=== PATIENT | female | born 1975 | race African-American/Black ===

== ENCOUNTER 2017-04-23 22:55 | Emergency (ER) | payer BC ==
[2017-04-23] MEDS ORDERED: BENADRYL INJ 50 MG VIAL IM ONE (23:07)
[2017-04-23] MEDS ORDERED: SOLU-Medrol 125 MG VIAL IVP ONE (23:07)
[2017-04-23 23:08] VITALS: BP 187/91; BMI 42.5
[2017-04-23] MEDS ORDERED: SOLU-Medrol 125 MG VIAL ONE (23:09)
[2017-04-23] MEDS ORDERED: BENADRYL INJ 50 MG VIAL ONE (23:09)
--- NOTE | 2017-04-23 23:09 | DR.GENAD ---
HPI - PCP Primary Care Physician: MOHAN - Complaint/Symptoms Chief Complaint Doctors Comments: Patient states that they went to eat at [employer], ate some garlic knots and went to [employer] and ate some salted peanuts. Later on about 2200 started feeling lip swell and cough. Chief Complaint:: PT HAS EDEMA TOO EYELIDS AND LIP ITCHING ALLOVER UNKNOWN ALLERGY - Source History Provided: Patient - Mode of Arrival Mode of Arrival: Ambulatory - Timing Onset of Chief Complaint: 04/23/17 PMH - PMH Past Medical History: Yes Past Medical History: Hypertension Past Surgical History: Yes Surgical History: , [employer] Surgery - Family History History of Family Medical Conditions: No - Social History Does patient currently use any type of tobacco product: No Have you used tobacco products in the last 12 months: No Type of Tobacco Use: None Does any household member use tobacco: No Alcohol Use: None Do you use any recreational Drugs:: No Lives With: Family Lives Where: Home - infectious screening In the last 2 months have you had wt loss of >10#?: NO Have you had fever, night sweats or hemotysis?: No Have you traveled outside the country in the last 6 months?: No Isolation: Standard ROS - Review of Systems Eyes: No Symptoms Reported ENTM: No Symptoms Reported Respiratoy: No Symptoms Reported Cardiovascular: No Symptoms Reported Gastrointestinal/Abdominal: No Symptoms Reported Genitourinary: No Symptoms Reported Neurological: No Symptoms Reported Musculoskeletal: No Symptoms Reported Integumentary: No Symptoms Reported Hematologic/Lymphatic: No Symptoms Reported Endocrine: No Symptoms Reported Psychiatric: No Symptoms Reported All Other Systems: Reviewed and Negative PE - Vital Signs Vitals: Temperature 98.6 F Pulse Rate 124 Respiratory Rate 18 Blood Pressure 187/91 O2 Sat by Pulse Oximetry 97 - General General Appearance: Alert, In No Apparent Distress - Head Head Exam: Normal Inspection, Atraumatic - Eyes Eye exam: Normal Appearance, PERRL, EOMI - ENT ENT Exam: Normal Exam, Other (tongue non edematous) External Ear Exam: Normal External Inspection TM/Canal Exam: Bilateral Normal Nose Exam: Normal Nose Exam Mouth Exam: Lip Swelling (left lower lip edematous). negative: Drooling, Trismus, Tongue Swelling Throat Exam: Normal Inspection - Neck Neck Exam: Normal Inspection - Chest Chest Inspection: Normal Inspection - Respiratory Respiratory Exam: Normal Lung Sounds Bilat Respiratory Exam: Bilateral Clear to Auscultation - Cardiovascular Cardiovascular Exam: Regular Rate, Normal Rhythm - Abdominal Exam Abdominal Exam: Normal Inspection Abdominal Tenderness: negative: RUQ, RLQ, LUQ, LLQ, Epigastrium, Suprapubic, Diffuse, Mild, Moderate, Severe, Other - Extremities Extremities Exam: Normal Inspection - Back Back Exam: Normal Inspection, Full ROM - Neurologic Neurological Exam: Alert, Oriented X3, CN II-XII Intact - Psychiatric Psychiatric Exam: Normal Affect, Normal Mood - Skin Skin Exam: Warm, Dry, Intact Course - Reevaluation 1st: Improved - Diagnosis Discharge Problem: Allergic reaction Qualifiers: Encounter type: initial encounter Qualified Code(s): T78.40XA - Allergy, unspecified, initial encounter - Discharge Plan Condition: Stable - Follow ups/Referrals Follow ups/Referrals: Mika PRESTON [Primary Care Provider] - 3 days - Instructions
[2017-04-23] MEDS ORDERED: ZANTAC INJ 50 MG in NS 50 ML IV 50 ML IV ONE (23:22)
[2017-04-23] MEDS ORDERED: ZANTAC INJ ONE (23:26)
[2017-04-23] MEDS ORDERED: NS 1000 ML 1,000 ML ONE (23:26)
[2017-04-23] MEDS ORDERED: NS 100 ML IV 0 ML IV ONE (23:27)
[2017-04-23] MEDS ORDERED: NS 50 ML IV 50 ML IV ONE (23:29)
[2017-04-23] MEDS ORDERED: NS 1000 ML 1,000 ML IV SCH (23:45)
== END 2017-04-24 01:06 | disposition home or self-care (01) ==
LOC: ER 22:55
DX: T78.49XA Other allergy, initial encounter (principal)
CPT/HCPCS: 96365; 96367; 96372; 96374; 96375; 99282; 99283; A4222; J1200; J2780; J2930